=== PATIENT | female | born 1955 | race African-American/Black ===

== ENCOUNTER → 2016-11-29 | Outpatient (CLI) | payer OTHER ==
[2016-11-29 10:53] LABS: CREATININE 0.8 mg/dL (0.6-1.0)
== END ==
LOC: LABMALL 10:12
PROVIDERS: Family Medicine
DX: R10.13 Epigastric pain (principal)

== ENCOUNTER 2017-09-15 05:24 | Inpatient (IN) | payer OTHER ==
[2017-08-31 08:49] LABS: HEMATOCRIT 38.3 % (37.0-47.0); HEMOGLOBIN 12.7 gm/dL (12.0-15.0); MCH 27.8 pg (26.0-34.0); MCHC 33.3 g/dL (28.0-37.0); MCV 83.6 fL (80.0-100.0); RBC 4.58 mil/uL (4.20-5.00); RDW 13.9 % (10.5-14.5); WBC 6.4 thou/uL (4.0-11.0)
[2017-08-31 08:57] LABS: URINE BILIRUBIN NEGATIVE (Negative); URINE BLOOD NEGATIVE (Negative); URINE CLARITY CLEAR; URINE COLOR YELLOW; URINE GLUCOSE-RANDOM* NEGATIVE (Negative); URINE KETONES NEGATIVE (Negative); URINE LEUKOCYTES-REFLEX NEGATIVE (Negative); URINE NITRITE-REFLEX NEGATIVE (Negative); URINE PROTEIN (DIPSTICK) NEGATIVE (Negative); URINE UROBILINOGEN 0.2 E.U./dl (0.2-1.0)
[2017-08-31 08:58] LABS: CALCIUM 9.6 mg/dL (8.5-10.1); CREATININE 0.8 mg/dL (0.6-1.0); POTASSIUM 3.6 mmol/L (3.5-5.1)
[2017-08-31 09:03] LABS: PROTIME 10.7 Seconds (9.3-11.4)
[2017-09-15] VITALS (9 sets, daily range): BP systolic 116–157; BP diastolic 80–98
[~2017-09-15] VITALS: Ht 170.2 cm; Wt 99.8 kg
--- NOTE | ~2017-09-15 | O ---
[facility] [place] [address] OPERATIVE REPORT Name: VIDAL JENSEN Room #: 409-P [facility] IN M.R.#: [id number] Admission: 09/15/17 Attend Phys: Rigo Muller MD Discharge: Date of : 53 Report #: [id number] THIS REPORT FOR: //name// CC: Juan Muller DATE OF SERVICE: 09/15/2017 PREOPERATIVE DIAGNOSIS: Left knee osteoarthritis. POSTOPERATIVE DIAGNOSIS: Left knee osteoarthritis. PROCEDURE: Left total knee arthroplasty with Navio robotic assistance. SURGEON: Rigo Muller M.D. NETWORK DEVELOPMENT COORDINATOR: Vanessa Ch PA-C. INDICATION FOR THE ASSISTNT: Throughout the case, extensive retraction and manipulation of the knee was required. This was afforded to me by my physical therapy assistant instructor. ANESTHESIA: LMA with an adductor canal block. IMPLANTS: Holland [employer] Nephew size 7 Legion Oxinium posterior stabilized femur, size 5 tibia, size 9 polyethylene and size 32 patella. TOURNIQUET TIME: 82 minutes. ESTIMATED BLOOD LOSS: 50 mL. COMPLICATIONS: None. SPECIMENS: None. CONDITION UPON LEAVING THE OPERATING ROOM: Stable. INDICATIONS FOR PROCEDURE: The patient is a 61-year-old female with severe left knee osteoarthritis. She had failed conservative treatment for this and after discussion with her, she elected for left total knee arthroplasty. DESCRIPTION OF PROCEDURE: Risks, benefits, alternatives and complications were discussed in detail with the patient, including but not limited to risk of anesthesia; risk of damage to nerves, arteries or blood vessels; risk for infection or bleeding; risk for continued knee pain and need for reoperation. Informed consent was obtained from the patient. Left knee was appropriately marked in the preoperative holding area. IV Ancef was given for preoperative [address] [address] OPERATIVE REPORT Name: VIDAL JENSEN [facility] Room #: 409-P [facility] IN M.R.#: [id number] Admission: 09/15/17 Attend Phys: Rigo Muller MD Discharge: Date of : 53 Report #: [id number] antibiotics. She was brought to the operating room and placed in the supine position on the operating room table. LMA anesthesia was induced without complication. Tourniquet was placed on the left thigh. Left lower extremity was prepped and draped in normal sterile fashion. Timeout was performed, properly identifying the patient, procedure as well as the instrumentation. All in the operating room were in agreement. Left lower extremity was exsanguinated and tourniquet was inflated. Tourniquet time was 82 minutes. Standard midline approach to the knee was made with 10 blade through the skin. Dissection was taken down sharply to the fascia and deep flaps were developed medially and laterally. Fresh 10 blade was used to make a medial parapatellar arthrotomy and the knee was inspected. There was extensive tricompartmental osteoarthritic change. ACL and PCL were removed sharply. Anterior horns of meniscus were removed sharply. Osteophytes were removed from the femur and the tibia. Reference pins in the femur and tibia were then placed and the Navio system was set up. The femur and tibia were then digitally mapped and flexion and extension gaps and balance were calculated. The femur was sized to be a size 7. The high-speed bur was then used to make the distal femoral cut using the Navio system. The 4-in-1 size 7 cutting block was placed. Anterior, posterior and chamfer cuts were made. Attention was turned to the tibia. Tibial resection guide was then pinned in place using the drill holes previously placed using the Navio system. The tibial resection was then made. After this tibia sized, found to be a size 5, the size 5 tibial trial was placed, size 7 femoral trial was placed and the box cut was made. This was then trialed with a size 9 polyethylene and found to have good balance in flexion and extension both medially and laterally. This was manually checked as well as digitally checked using the Navio system. A 9 mm was taken off the posterior surface of the patella and a size 32 patellar trial was placed. Knee was taken through range of motion and found to be stable and found to have good balance in flexion and extension both medially and laterally. Trial components were removed. Bony ends were thoroughly irrigated with normal saline. A final size 5 tibia, size 7 Legion Oxinium posterior stabilized femur and a size 32 patella were cemented in place using standard cementation techniques. While the cement cured, a periarticular injection consisting of morphine, ropivacaine, epinephrine and Toradol was placed around the knee joint. After the cement cured, tourniquet was deflated. Hemostasis was obtained with Bovie cautery. Final size 9 polyethylene was placed. A gram of vancomycin was placed deep in the joint. The fascia was closed with 0 Vicryl, skin was closed with 2-0 Vicryl and 3-0 Monocryl. Dermabond and a KARYN dressing was applied. The patient tolerated this procedure well and went to the recovery room under the care of anesthesia postoperatively. <ELECTRONICALLY SIGNED> By: Rigo Muller MD 09/16/17 1306 [id number] 1035 Rigo Muller MD /nt
[~2017-09-15 05:24] MED LIST: EXCEDRIN CAPLE1 EACH PO
[2017-09-16 00:25] VITALS: BP 110/55
[2017-09-16 05:16] VITALS: BP 112/62
[2017-09-16 06:00] LABS: HEMATOCRIT 29.1 % (37.0-47.0); HEMOGLOBIN 9.5 gm/dL (12.0-15.0); MCH 27.6 pg (26.0-34.0); MCHC 32.8 g/dL (28.0-37.0); MCV 84.3 fL (80.0-100.0); RBC 3.45 mil/uL (4.20-5.00); RDW 13.7 % (10.5-14.5); WBC 10.6 thou/uL (4.0-11.0)
[2017-09-16 08:00] VITALS: BP 125/79
[2017-09-16] MEDS ORDERED: TRI-BUFFERED A325 M1 PO (14:57)
[2017-09-16] MEDS ORDERED: MS CONTIN15 MG PO (14:57)
[2017-09-16] MEDS ORDERED: PERCOCET PO (14:58)
[2017-09-16] MEDS ORDERED: NEURONTIN 300300 M1 PO (14:58)
[2017-09-16 17:09] VITALS: BP 125/61
[2017-09-16 20:00] VITALS: BP 121/71
[2017-09-17 04:00] VITALS: BP 102/53
[2017-09-17 05:49] LABS: HEMATOCRIT 24.4 % (37.0-47.0); HEMOGLOBIN 8.1 gm/dL (12.0-15.0); MCH 28.1 pg (26.0-34.0); MCHC 33.3 g/dL (28.0-37.0); MCV 84.4 fL (80.0-100.0); RBC 2.9 mil/uL (4.20-5.00); RDW 13.3 % (10.5-14.5); WBC 7.1 thou/uL (4.0-11.0)
[2017-09-17 07:45] VITALS: BP 122/76
[2017-09-17 10:16] VITALS: BP 122/76
== END 2017-09-17 12:35 | disposition home or self-care (01) | DRG 470 ==
LOC: PRE 05:24 → TBA 05:27 → PRE 08:24 → 4N 11:00 → PRE 16:43 → 4N 09-17 12:35
PROVIDERS: Orthopaedic Surgery
PROC: 0SRD0J9 Replacement of Left Knee Joint with Synthetic Substitute, Cemented, Open Approach (ICD-10-PCS; principal; 2017-09-15)
DX: M17.12 Unilateral primary osteoarthritis, left knee (principal); Z91.040 Latex allergy status; Z79.82 Long term (current) use of aspirin; Z79.899 Other long term (current) drug therapy
CPT/HCPCS: 10790; 50010; 50101; 50954; 51130; 51225; 51771; 53000; 53078; 53365; 54118; 56527; 56528; 57095; 62110; 62900; 70005

== ENCOUNTER → 2018-10-17 | Outpatient (CLI) | payer OTHER ==
[~2018-10-17] MED LIST changes: +MS CONTIN15 MG PO; +NEURONTIN 300300 M1 PO; +PERCOCET PO; +SUPER B COMPLE150 MG PO; +TRI-BUFFERED A325 M1 PO; +TYLENOL EXTRA500 MG PO
== END ==
LOC: RAD 08:53
DX: R05 Cough (principal)

== ENCOUNTER 2019-06-25 08:15 | Inpatient (IN) | payer OTHER ==
[~2019-06-25] VITALS: Ht 170.2 cm; Wt 112.5 kg
[2019-06-25 08:18] VITALS: BP 151/97
[2019-06-25 08:51] LABS: ABSOLUTE NEUTROPHILS 5.7 thou/uL (1.4-8.2); BASOPHILS 0.6 % (0.0-2.0); EOSINOPHILS 0.5 % (0.0-3.0); HEMATOCRIT 31.9 % (37.0-47.0); HEMOGLOBIN 10.3 gm/dL (12.0-15.0); LYMPHOCYTES 32.2 % (24.0-44.0); MCH 26.8 pg (26.0-34.0); MCHC 32.1 g/dL (28.0-37.0); MCV 83.4 fL (80.0-100.0); MONOCYTES 5.3 % (1.0-8.0); PLATELET COUNT 271 thou/uL (150-400); POLYS 61.4 % (36.0-66.0); RBC 3.83 mil/uL (4.20-5.00); RDW 14.5 % (10.5-14.5); WBC 9.3 thou/uL (4.0-11.0)
[2019-06-25 09:01] LABS: CALCIUM 8.9 mg/dL (8.5-10.1); CREATININE 0.8 mg/dL (0.6-1.0); POTASSIUM 3.6 mmol/L (3.5-5.1)
[2019-06-25 09:07] LABS: ALBUMIN 3.8 g/dL (3.4-5.0); TOTAL BILIRUBIN 0.3 mg/dL (<0.1-1.0); TOTAL PROTEIN 7.4 g/dL (6.4-8.2)
[2019-06-25 11:42] VITALS: BP 149/84
[2019-06-25 15:51] LABS: HEMATOCRIT 27.5 % (37.0-47.0); HEMOGLOBIN 9.1 gm/dL (12.0-15.0); MCH 27.6 pg (26.0-34.0); MCHC 33.2 g/dL (28.0-37.0); MCV 83.1 fL (80.0-100.0); RBC 3.31 mil/uL (4.20-5.00); RDW 14.5 % (10.5-14.5); WBC 9.1 thou/uL (4.0-11.0)
--- NOTE | 2019-06-25 18:46 | NUR ---
PT ADMITTED POST SCOPE IN GI LAB. FOUND TO HAVE BLEEDING GASTRIC ULCER. STARTED ON IV FLUIDS AND PROTONIX GTT. PRN FENTANYL GIVEN FOR PAIN. ADMISSION ASSESSMENTS COMPLETE. MED REC UP TO DATE.
[2019-06-25 19:17] VITALS: BP 127/66
--- NOTE | 2019-06-26 04:51 | NUR ---
Pt. rested quietly at intervals during the night when checked on during frequent rounds. She did c/o abdominal pain and ivp pain med given (see emar) with relief noted. Pt. also c/o nausea and ivp zofran given (see emar) with relief. No noted bleeding this shift.
[2019-06-26 07:31] LABS: BASOPHILS 0.6 % (0.0-2.0); EOSINOPHILS 3.6 % (0.0-3.0); HEMOGLOBIN 7.9 gm/dL (12.0-15.0); LYMPHOCYTES 35.8 % (24.0-44.0); MCH 27.4 pg (26.0-34.0); MCHC 32.8 g/dL (28.0-37.0); MCV 83.5 fL (80.0-100.0); MONOCYTES 6.6 % (1.0-8.0); PLATELET COUNT 195 thou/uL (150-400); POLYS 53.4 % (36.0-66.0); RBC 2.88 mil/uL (4.20-5.00); RDW 14.4 % (10.5-14.5); WBC 7.5 thou/uL (4.0-11.0)
[2019-06-26 08:01] VITALS: BP 129/76
--- NOTE | 2019-06-26 08:18 | EKG ---
[facility] [place] [address] ELECTROCARDIOGRAM REPORT Name: VIDAL JENSENJose Alfredo Room #: 460-P ADM IN M.R.#: [id number] Admission: 06/25/19 Attend Phys: Kike Rae MD Discharge: Date of : 53 Report #: [id number] THIS REPORT FOR: cc: Skye Diop MD, Nora P. MD Couchonnal, Luis F. MD ~ THIS REPORT FOR: //name// [facility] ED Test Date: 2019-06-25 Test Time: 08:37:34 Pat Name: VIDAL JENSEN Department: Room: 460 P Gender: F Teacher'S Aide: KF : 1955 Requested By: Chuy Mercer Order Number: [id number] MD: Abad Khan Measurements Intervals [place] Rate: 102 P: 72 DC: 170 QRS: 45 QRSD: 76 T: 1 QT: 309 QTc: 403 Interpretive Statements Sinus tachycardia Probable left atrial enlargement Probable left ventricular hypertrophy Compared to ECG 12/12/2017 08:30:14 Sinus rhythm no longer present Electronically Signed On 06-26-2019 8:17:50 DIRECTOR POWER by Abad Khan [email or web address] <ELECTRONICALLY SIGNED> By: Abad Khan MD 06/26/19816 6 6 Abad Khan MD /EPI
[2019-06-26 16:42] VITALS: BP 131/67
--- NOTE | 2019-06-26 16:46 | P ---
[facility] [place] [address] PROCEDURE REPORT Name: VIDAL JENSEN Room #: 460-P ADM IN M.R.#: [id number] Admission: 06/25/19 Attend Phys: Kike Rae MD Discharge: Date of : 53 Report #: [id number] THIS REPORT FOR: cc: Skye Diop MD, Nora P. MD Thesing, John A. MD ~ CC: Humza Diop BRIEF HISTORY: The patient is a 63-year-old woman who was admitted to [facility] earlier today with hematemesis. She was anemic and tachycardic with a pulse rate of 135 upon presentation. Symptoms started last evening with severe chest pain, syncopal episode, hematemesis of blood clots and dark blackish stools. Her BUN is 50 today. History is notable for daily use of aspirin, typically 6 per day. At times, she may take as many as 12 per day. PREOPERATIVE DIAGNOSES: Upper gastrointestinal bleeding and history of heavy aspirin ingestion. POSTOPERATIVE DIAGNOSES: 1. Multiple antral ulcers, nonbleeding. 2. Small hiatus hernia. MEDICATIONS: Deep sedation with propofol per anesthesia. SPECIMEN: Biopsies of gastritis, rule out Helicobacter pylori. ESTIMATED BLOOD LOSS: 3 mL. PROCEDURE: EGD with biopsy. FINDINGS: Prior to propofol sedation, procedure of upper endoscopy was discussed with the patient as well as potential risks and its complications. She indicates she understands and desires to proceed. DESCRIPTION OF PROCEDURE: With the patient in left lateral decubitus position, the Olympus video endoscope was inserted in the cervical esophagus under direct vision without difficulty. Examination of this organ through its entire length revealed normal esophageal mucosa down the squamocolumnar junction. Squamocolumnar junction was inspected. A small hiatus hernia was seen. There is no evidence of bleeding or mass lesions. The scope was advanced in the stomach, was examined on end view as well as retroflexed views. There was a pool of clear frothy secretions in the stomach and bilious secretions were not seen. Upon retroflexion, no mass lesions were seen. Examination of the distal stomach revealed a markedly deformed antrum. There were noted to be some thickening with erythema and edema of the folds. A carefully looking between [address] [address] PROCEDURE REPORT Name: VIDAL JENSEN [facility] Room #: 460-P [facility] IN [facility].#: [id number] Admission: 06/25/19 Attend Phys: Kike Rae MD Discharge: Date of : 53 Report #: [id number] the folds so we found at least 3 ulcers. The largest was about 1.5-2.0 cm in greatest dimension. There was a very deep ulcer on the greater curvature aspect of the stomach. There was some blackish material which was flat. An obvious vessel was not seen. However, the ulcer was very deep and I could not see all of the ulcer crater. The other ulcers were smaller with clean bases. I could not see and definitely exposed the vessel. Due to the difficulty in visualizing the entire ulcer base, it was felt best not to apply thermal therapy to the base of the ulcer blindly. The pylorus was erythematous, but otherwise unremarkable. Duodenal bulb and postbulbar duodenal sweep down to third portion was unremarkable. There was no blood in the duodenum. At that point, the scope was slowly withdrawn and careful circumferential views confirmed the above findings. In addition, biopsies were obtained of the gastric mucosa to evaluate for H. pylori. DISPOSITION: The patient with multiple ulcers and evidence of GI bleeding. Agree with PPI and will continue at this point in time. We will continue PPI drip. We will follow up on biopsies. If she has H. pylori, antibiotic treatment may be beneficial to the patient. She will need a followup EGD to ensure healing of the ulcer. It is also noted she has never had a colonoscopy and I would strongly urge to have a screening colonoscopy when she returns for EGD. In addition, the patient should avoid use of aspirin or nonsteroidals. She is to speak with her primary regarding alternatives to aspirin for migraine headaches. <ELECTRONICALLY SIGNED> By: Humza Barbosa MD 06/26/19 1646 [id number] 2232 Humza Barbosa MD /nt
[2019-06-26 20:33] VITALS: BP 125/65
--- NOTE | 2019-06-26 20:33 | NUR ---
PATIENT ALERT AND ORIENTED WITH AT BEDSIDE MOST OF THE DAY. PATIENT REQUESTED PAIN IV PAIN MED X 1 TODAY AND TO TOLERATED CLEAR LIQUID DIET AND REQUESTED TO BE AVANCED TO FIBER RESTRICTED SOFT DIET THIS EVENING. PATIENT OBSERVED EATING FRIED CHICKEN BROUGHT IN FROM . THIS NURSE AVDISED PATIENT TO MINIMIZE PORTIONS TO NOT CAUSE NAUSEA. PATIENT DIDN'T HAVE ANY FURTHER NAUSEA ON THIS DAY SHIFT.
[2019-06-27 05:35] LABS: HEMATOCRIT 23.3 % (37.0-47.0); HEMOGLOBIN 7.6 gm/dL (12.0-15.0); MCH 27.7 pg (26.0-34.0); MCHC 32.7 g/dL (28.0-37.0); MCV 84.7 fL (80.0-100.0); RBC 2.75 mil/uL (4.20-5.00); RDW 14.6 % (10.5-14.5); WBC 7.2 thou/uL (4.0-11.0)
[2019-06-27 06:01] LABS: CALCIUM 8.4 mg/dL (8.5-10.1); CREATININE 0.6 mg/dL (0.6-1.0); POTASSIUM 3.6 mmol/L (3.5-5.1)
[2019-06-27 07:09] VITALS: BP 127/66
--- NOTE | 2019-06-27 07:48 | NUR ---
PROGRESS PT A/O X 4 UP AD MARIELOS. RATING PAIN A 5 TO 9 TAKING 50 MCG FENTANYL SPARINGLY, VOIDING QS AND HAD A SMALL FORMED BM. TOLERATING DIET ADEQUATE PO INTAKE. CONTINUE POC.
[2019-06-27 14:30] LABS: HEMATOCRIT 25.9 % (37.0-47.0); HEMOGLOBIN 8.5 gm/dL (12.0-15.0); MCH 27.7 pg (26.0-34.0); MCHC 32.9 g/dL (28.0-37.0); RBC 3.08 mil/uL (4.20-5.00); RDW 14.3 % (10.5-14.5); WBC 8.4 thou/uL (4.0-11.0)
[2019-06-27 16:00] VITALS: BP 128/64
--- NOTE | 2019-06-27 16:26 | NUR ---
PT ADMITTED RELATED TO LAP CHOLECYSTECTOMY. CM REVIEWED CHART AND SPOKE WITH CARE TEAM. CM MET WITH PT AND WENDY AT BEDSIDE THIS DAY. PT IS A&O X4. CM ROLE INTRODUCED. PT INDICATED SHE LIVES IN A HOUSE WITH HER SIG OTHER WITH NO STEPS OUTSIDE OR IN. 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 PT INDICATED SHE PLANS TO RETURN HOME ONCE MEDICALLY STABLE. CARE TEAM ARE ANTICIPATING LIKELY DC TOMORROW. CM TO FOLLOW INDICATED WITH DC PLANNING.
--- NOTE | 2019-06-27 16:58 | NUR ---
PT ALERT AND ORIENTED TIMES FOUR. VSS, PROTONIX GTT AND IVF INFUSING PER ORDER. PT C/O ABD PAIN AND NAUSEA. PRN MEDICATIONS FOR BOTH GIVEN WITH GOOD RELEIF. PT TOLERATES MEDS AND MEALS. PT UP AB MARIELOS WITH STEADY GAIT. PT AT BEDSIDE. PLANS FOR POSSIBLE DISCHARGE TOMORROW. PT PROGRESSING TOWARDS POC GOALS.
--- NOTE | 2019-06-27 17:07 | PATH ---
[facility] [address] [place] [address] PATHOLOGY RPT PROCEDURE Name: CHRISTINA ROLLINS Room #: 460-P ADM IN M.R.#: [id number] Admission: 06/25/19 Date of : 53 Discharge: Report #: [id number] Path Case #: [id number] [facility] Accession Number: [id number] . 01 Material submitted: . stomach - BX OF GASTRITIS . 01 Clinical history: . GI bleed; R/O H. pylori . 02 Diagnosis: Gastric mucosa, gastritis, rule out H. pylori, endoscopic biopsy: - Mild reactive gastropathy. - Negative for intestinal metaplasia or atrophy. - Negative for Helicobacter pylori (properly-controlled immunohistochemical stain performed). . (IUV:mml; 06/27/2019) QLM 06/27/2019 1037 Local . 02 Electronically signed: . Kristina Sol MD, Pathologist NPI- [id number] . 01 Gross description: . The specimen is received in formalin, labeled "Christina Rollins, biopsy of gastritis". Received are three segments of pale chandler soft tissue ranging in size from 0.4 to 0.6 cm in maximum dimensions. The specimen is submitted entirely in cassette A1. (CAA; 06/26/2019) QA/QA 06/26/2019 1104 Local . 02 Pathologist provided ICD-10: K31.9 . 02 CPT . 933989, [id number] Specimen Comment: A courtesy copy of this report has been sent to [phone], [phone] Specimen Comment: [phone], Specimen Comment: Report sent to , and Performed at: [address] [id number] MD Gabino López MD Phone: [phone] Performed at: [address] [address] PATHOLOGY RPT PROCEDURE Name: CHRISTINA ROLLINSJose Alfredo Room #: 460-P ADM IN M.R.#: [id number] Admission: 06/25/19 Date of : 53 Discharge: Report #: [id number] Path Case #: [id number] [address] [place] [id number] MD Kristina Sol MD Phone: [phone]
[2019-06-27 19:09] VITALS: BP 126/62
[2019-06-28 07:19] VITALS: BP 119/61
--- NOTE | 2019-06-28 07:39 | NUR ---
PROGRESS PT UP AD MARIELOS LUNGS CLEAR BS POSITIVE VOIDING QS HAD A SMALL STOOL NOT VISUALIZED. TAKING FENTANYL FOR PAIN HYDROCODONE ORDERED AND GIVEN X 1 PT REPORTED A HEADACHE AFTER. INSPECTOR FINAL ASSEMBLY CONVEYOR LINE TEXTED TO REQUEST A CHANGE TO OXYCODONE NO RESPONSE REQUESTED DAY SHIFT TO SPEAK TO DOCTOR. IV PROTONIX DRIP CONTIUES AT 8 MG/HR AND IVF'S RUNNING AT KVO. CONTINUE TO MONITOR.
[2019-06-28 09:27] LABS: HEMATOCRIT 27.9 % (37.0-47.0); HEMOGLOBIN 9.1 gm/dL (12.0-15.0); MCH 27.4 pg (26.0-34.0); MCHC 32.5 g/dL (28.0-37.0); MCV 84.4 fL (80.0-100.0); RBC 3.3 mil/uL (4.20-5.00); RDW 14.3 % (10.5-14.5); WBC 7.1 thou/uL (4.0-11.0)
[2019-06-28 09:48] LABS: CALCIUM 8.5 mg/dL (8.5-10.1); CREATININE 0.7 mg/dL (0.6-1.0); POTASSIUM 3.5 mmol/L (3.5-5.1)
--- NOTE | 2019-06-28 13:29 | NUR ---
Received awake on bed. Due medications given as prescribed, able to swallow meds w/o difficulty. On room air. Vital signs stable. A+Ox4. On fiber restricted diet- encouraged to eat and drink- pt says she does not have the appetite to eat, offered snacks to patient. Continent of bowel and bladder. Independent with ADLs. With Protonix drip at 8mg/hr, infusing well at R FA. Pt complained of pain, requesting to have her Leakey changed to Oxycodone since Leakey is causing to have headache- Dr Rae informed, change on pt's medication made. Pt seen by DARELL Burkett, CBC ordered for tomorrow; discontinued Protonix drip and shifted to PO. Pt for possible discharge, a/w orders and clearance from GI standpoint as well.
[2019-06-28 15:15] VITALS: BP 122/74
[2019-06-28 15:25] LABS: HEMATOCRIT 26.7 % (37.0-47.0); HEMOGLOBIN 8.7 gm/dL (12.0-15.0); MCH 27.6 pg (26.0-34.0); MCHC 32.7 g/dL (28.0-37.0); MCV 84.5 fL (80.0-100.0); RBC 3.16 mil/uL (4.20-5.00); RDW 14.4 % (10.5-14.5); WBC 7.9 thou/uL (4.0-11.0)
--- NOTE | 2019-06-28 16:16 | NUR ---
CARE TEAM INDICATED POSSIBLE DC HOME TOMORROW. CM TO FOLLOW INDICATED WITH DC PLANNING.
[2019-06-28 20:15] VITALS: BP 120/63
[2019-06-29 06:41] LABS: HEMATOCRIT 25.7 % (37.0-47.0); HEMOGLOBIN 8.4 gm/dL (12.0-15.0); MCH 27.4 pg (26.0-34.0); MCHC 32.7 g/dL (28.0-37.0); RBC 3.06 mil/uL (4.20-5.00); RDW 14.4 % (10.5-14.5); WBC 7.7 thou/uL (4.0-11.0)
[2019-06-29 08:42] VITALS: BP 137/72
[2019-06-29] MEDS ORDERED: PERCOCET PO (10:32)
[2019-06-29] MEDS ORDERED: PROTONIX40 M1 PO (10:32)
[2019-06-29] MEDS ORDERED: CARAFATE 11 GM/10 M1 PO (10:32)
[2019-06-29] MEDS ORDERED: ZOFRAN 4 MG ORAL4 MG PO (10:33)
[2019-06-29 10:57] VITALS: BP 137/72
--- NOTE | 2019-06-29 12:45 | NUR ---
Received awake on bed. Due medications given as prescribed, able to swallow meds w/o difficulty. On room air. Vital signs stable. On fiber restricted diet- tolerating well, encouraged to eat; no nausea, no vomiting and no abdominal pain. With at the bedside. With SL at R FA. A+Ox4. Continent of bowel and bladder, independent with ADLs. Pt seen by Dr Rae this AM, discharge orders made. Discharge instructions, follow up schedule and prescription given and instructed to patient; forms signed. IV discontinued. Pt fetched by her , brought down patient via wheelchair by volunteer transport with her personal belongings.
== END 2019-06-29 12:50 | disposition home or self-care (01) | DRG 379 ==
LOC: ER 08:15 → 4W 11:03 → EROBS 11:03 → 4W 11:47 → ENTRNSPT 06-29 12:00 → EDTRNSPTSTS 06-29 12:04 → 4W 06-29 12:50
PROVIDERS: Emergency Medicine; Nurse Practitioner; Specialist; ADMIT Hospitalist
PROC: 0DB68ZX Excision of Stomach, Via Natural or Artificial Opening Endoscopic, Diagnostic (ICD-10-PCS; principal; 2019-06-25)
DX: K25.4 Chronic or unspecified gastric ulcer with hemorrhage (principal); K29.71 Gastritis, unspecified, with bleeding; G43.909 Migraine, unspecified, not intractable, without status migrainosus; K21.9 Gastro-esophageal reflux disease without esophagitis; K44.9 Diaphragmatic hernia without obstruction or gangrene; E86.0 Dehydration; J45.909 Unspecified asthma, uncomplicated; Z90.710 Acquired absence of both cervix and uterus; Z87.81 Personal history of (healed) traumatic fracture; Z90.49 Acquired absence of other specified parts of digestive tract; Z91.040 Latex allergy status; Z79.1 Long term (current) use of non-steroidal anti-inflammatories (NSAID); Z79.899 Other long term (current) drug therapy
CPT/HCPCS: 10040; 10045; 62110; 62900; 70005

== ENCOUNTER → 2019-08-01 | Outpatient (CLI) | payer OTHER ==
[~2019-08-01] MED LIST changes: +CARAFATE 11 GM/10 M1 PO; +PROTONIX40 M1 PO; +ZOFRAN 4 MG ORAL4 MG PO
== END ==
LOC: SJCVCIMAG 08:06 → SJCVC 16:01
DX: I35.8 Other nonrheumatic aortic valve disorders (principal); R01.1 Cardiac murmur, unspecified; R06.00 Dyspnea, unspecified

== ENCOUNTER → 2019-08-10 | Outpatient (CLI) | payer OTHER ==
[2019-08-10 09:20] VITALS: BP 137/80
[2019-08-10 11:11] VITALS: BP 174/88
--- NOTE | 2019-08-10 11:17 | NUR ---
IN FOR 1ST INJECTAFER INFUSION FOR IRON DEFICIENCY ANEMIA. STATED FEELING OK, JUST TIRED. CARON WITH VASCULAR ACCESS TEAM STARTED IV. ADMISSION HISTORY AND ASSESSMENT COMPLETED. MEDICATION RECONCILED. TOLERATED INFUSION WITHOUT INCIDENT. OBSERVED FOR 30 MINUTES. POST BLOOD PRESSURE HIGH. PATIENT STATED FEELING FINE. REMOVED IV AND DISMISSED IN STABLE CONDITION.
== END ==
LOC: OPONC 08:56
DX: D50.9 Iron deficiency anemia, unspecified (principal); K90.49 Malabsorption due to intolerance, not elsewhere classified
CPT/HCPCS: 95000

== ENCOUNTER → 2019-08-17 | Outpatient (CLI) | payer OTHER ==
[2019-08-17 10:00] VITALS: BP 143/81
[2019-08-17 12:30] VITALS: BP 124/68
--- NOTE | 2019-08-17 13:26 | NUR ---
IN FOR 2ND INJECTAFER INFUSION. STATED SHE IS NOT FEELING SHORT OF BREATH WITH ACTIVITY AND HAD NO SIDE EFFECTS. TOLERATED INFUSION WELL. OBSERVED FOR 30 MINUTES. POST VITAL SIGNS GOOD. REMOVED IV AND DISMISSED IN GOOD CONDITION.
== END ==
LOC: OPONC 08:48
DX: D50.9 Iron deficiency anemia, unspecified (principal); K90.49 Malabsorption due to intolerance, not elsewhere classified
CPT/HCPCS: 95000

== ENCOUNTER → 2019-09-24 | Outpatient (CLI) | payer OTHER ==
[~2019-09-24] MED LIST changes: +PROTONIX40 M2 PO
== END ==
LOC: RAD 09:54
DX: R05 Cough (principal)

== ENCOUNTER → 2019-09-28 | Outpatient (CLI) | payer OTHER ==
[~2019-09-28] VITALS: Ht 170.2 cm; Wt 109.8 kg
--- NOTE | 2019-09-29 12:27 | P ---
[facility] [place] [address] PROCEDURE REPORT Name: VIDAL JENSEN Room #: REG NATALIE MarieJennifer#: [id number] Admission: 09/28/19 Attend Phys: Humza Barbosa MD Discharge: Date of : 53 Report #: [id number] THIS REPORT FOR: cc: Skye Diop MD, Nora P. MD Thesing, John A. MD ~ CC: Humza Diop MD BRIEF HISTORY: The patient is a 63-year-old woman who was admitted to [facility] in June this year with GI bleeding. She was found to have evidence of antral gastric ulcers. She had been using a large amount of aspirin for headaches at that time. She has been on pantoprazole. She presents now for followup to check for healing ulcers. PREOPERATIVE DIAGNOSIS: Gastrointestinal bleeding and ulcers. POSTOPERATIVE DIAGNOSES: 1. Healed gastric ulcers. 2. Small sliding type hiatus hernia. 3. Thickened folds second portion of the duodenum. MEDICATIONS: Deep sedation per propofol. SPECIMEN: Biopsies of thickened folds in the second portion of the duodenum. ESTIMATED BLOOD LOSS: 3 mL. PROCEDURE: EGD with biopsy. FINDINGS: Prior to propofol sedation, the procedure of upper endoscopy was discussed with the patient as well as potential risks and its complications. She indicates she understands and desires to proceed. DESCRIPTION OF PROCEDURE: With the patient in left lateral decubitus position, the Olympus video endoscope was inserted in the cervical esophagus under direct vision without difficulty. Examination of this organ through its entire length revealed normal esophageal mucosa down the squamocolumnar junction. Squamocolumnar junction was inspected and noted to be unremarkable. The scope was advanced and a 2-3 cm sliding type hiatus hernia was encountered. The mucosa and the hernia was unremarkable. Scope was advanced in the stomach, which was examined on end view as well as retroflexed views. There was noted to be erythema in the antrum, but the mucosa was intact. The previously noted ulcers have healed 100%. There is some erythema, but no evidence of active ulcer disease or bleeding. Upon retroflexion, the hiatus hernia was seen. No other abnormalities were identified. No mass lesions were seen in the cardia. [address] [address] PROCEDURE REPORT Name: VIDAL JENSEN [facility] Room #: REG [facility] Se#: [id number] Admission: 09/28/19 Attend Phys: Humza Barbosa MD Discharge: Date of : 53 Report #: [id number] The pylorus, duodenal bulb and postbulbar duodenal sweep were inspected. In the second portion of the duodenum, there was some whitish thickened folds. This may represent adenomatous changes. This may be in the region of the duodenal papilla, which was not well seen today. It had a smooth and benign appearance, but these folds were much more prominent than typically seen; therefore, multiple biopsies were obtained. At that point, the scope was slowly withdrawn and careful circumferential views confirmed the above findings. The patient tolerated the procedure well. CONDITION OF THE PATIENT UPON DISCHARGE: Following procedure, the patient was drowsy and was then prepared for colonoscopy. INSTRUCTIONS TO THE PATIENT AND FAMILY AT THE TIME OF DISCHARGE: She is currently taking pantoprazole. She may use as needed. She is now using Tylenol for headaches. If nonsteroidals are required, she should coordinate with a PPI. The thickened folds in the second portion of the duodenum may be related to anal papilla, but they are much more extensive and prominent than typically seen. We will follow up on biopsies. May need further evaluation such as endoscopic ultrasound and repeat EGD depending on biopsy results. <ELECTRONICALLY SIGNED> By: Humza Barbosa MD 09/29/19 1227 1109 1410 Humza Barbosa MD /nt
--- NOTE | 2019-09-29 12:27 | P ---
[facility] [place] [address] PROCEDURE REPORT Name: VIDAL JENSEN Room #: REG NATALIE [facility]#: [id number] Admission: 09/28/19 Attend Phys: Humza Barbosa MD Discharge: Date of : 53 Report #: [id number] THIS REPORT FOR: cc: Skye Diop MD, Nora P. MD Thesing, John A. MD ~ CC: Humza Diop DATE OF SERVICE: 09/28/2019 BRIEF HISTORY: The patient is a 63-year-old woman for her initial average risk screening colonoscopy. PREOPERATIVE DIAGNOSIS: Screening colonoscopy. POSTOPERATIVE DIAGNOSIS: Diminutive colon polyps x 2. MEDICATIONS: Deep sedation with propofol per anesthesia. SPECIMENS: 1. Proximal transverse colon polyp. 2. Polyp distal ascending colon. ESTIMATED BLOOD LOSS: 3 mL. PROCEDURE: Colonoscopy to cecum and terminal ileum with biopsy. FINDINGS: Prior to propofol sedation, procedure of colonoscopy discussed with the patient as well as potential risks and its complications. She indicates she understands and desires to proceed. DESCRIPTION OF PROCEDURE: With the patient in left lateral decubitus position, digital examination was completed, which revealed no abnormalities. Subsequently, the LineaQuattro video colonoscope was introduced into the rectum, advanced under direct vision to the cecum. Done with minimal difficulty. The cecum was identified by the ileocecal valve and the appendiceal orifice. I was able to visualize the distal segment of terminal ileum, which was inspected and noted to be unremarkable. At that point, the scope was slowly withdrawn and careful circumferential views obtained. Upon slow withdrawal of the scope, the prep was good. The mucosa was within normal limits, normal vascular pattern, normal light reflex. As we withdrew the scope, she was noted to have a diminutive polyp in the distal transverse colon was removed with biopsy forceps. In the proximal transverse colon, another diminutive polyp was seen and removed with biopsy forceps. The scope was further withdrawn, no additional neoplastic [address] [address] PROCEDURE REPORT Name: VIDAL JENSENMELVINAJose Alfredo Room #: REG [facility].#: [id number] Admission: 09/28/19 Attend Phys: Humza Barbosa MD Discharge: Date of : 53 Report #: [id number] lesions were seen. Remainder of the colon was unremarkable. The mucosa was otherwise normal throughout. No inflammatory changes were seen. Scope was withdrawn in the rectum, no abnormalities were seen. Upon retroflex in the rectum, no abnormalities were seen. Scope was withdrawn. The patient tolerated the procedure well. CONDITION OF THE PATIENT UPON DISCHARGE: Following procedure, the patient was drowsy, arousable, conversant and will be discharged home when fully ambulatory. INSTRUCTIONS TO THE PATIENT AND FAMILY AT THE TIME OF DISCHARGE: Two diminutive polyps identified and removed as described above. We will follow up on the pathology. If one or both are adenomas, she is to return in 5 years; if neither is adenoma, then 10 years would be indicated. This is the patient's first colonoscopy. Withdrawal time from the cecum was 11 minutes 47 seconds. <ELECTRONICALLY SIGNED> By: Humza Barbosa MD 09/29/19 1227 1135 1819 Humza Barbosa MD /nt
--- NOTE | 2019-10-02 18:07 | PATH ---
[facility] [address] [address] PATHOLOGY RPT PROCEDURE Name: CHRISTINA JENSEN Room #: REG NATALIE Marie.#: [id number] Admission: 09/28/19 Date of : 53 Discharge: Report #: [id number] Path Case #: [id number] [facility] Accession Number: [id number] . 01 Material submitted: . PART A: duodenum - BX OF THICKENED FOLDS SECOND PORTION OF DUODENUM PART B: colon - POLYP AT PROXIMAL TRANSVERSE. Modifiers: proximal, transverse PART C: colon - POLYP AT DISTAL ASCENDING COLON. Modifiers: distal, ascending . 01 Clinical history: . Ulcer Follow-up of ulcers; screening . 02 Diagnosis: A. Small bowel mucosa, thickened folds second portion of duodenum, endoscopic biopsy: - All fragments showing tubular adenoma. - Negative for high grade dysplasia. . B. Polyp, proximal transverse, endoscopic biopsy: - Hyperplastic polyp and lymphoid aggregate. - Negative for dysplasia. . C. Polyp, at distal ascending colon, endoscopic biopsy: - Minute tubular adenoma. - Negative for high grade dysplasia. - One fragment showing lymphoid aggregate. . (IUV:mml; 10/02/2019) QL 10/02/2019 1427 Local . 02 Electronically signed: . Kristina Sol MD, Pathologist NPI- [id number] . 01 Gross description: . A. The specimen is received in formalin, labeled "Christina Englishsarah, biopsy of thickened folds in second portion of duodenum". Received are five segments of pale chandler soft tissue ranging in size from 0.3 to 0.7 cm in maximum dimensions. The specimen is submitted entirely in cassette A1. . B. The specimen is received in formalin, labeled "Christina Englishsarah, polyp at proximal transverse". Received is a segment of pale chandler soft tissue measuring 0.5 cm in maximum dimensions. The specimen is submitted entirely in [place] [address] PATHOLOGY RPT PROCEDURE Name: CHRISTINA JENSEN Room #: REG [facility].#: [id number] Admission: 09/28/19 Date of : 53 Discharge: Report #: [id number] Path Case #: [id number] . C. The specimen is received in formalin, labeled "Christina Abelri, polyp at distal ascending colon". Received is a segment of pale chandler soft tissue measuring 0.5 cm in maximum dimensions. The specimen is submitted entirely in cassette C1. (CAA; 09/28/2019) QAC/QAC 09/28/2019 1641 Local . 02 Pathologist provided ICD-10: D13.2, K63.5, D12.2 . 02 CPT . 583696, 795503, 183682 Specimen Comment: A courtesy copy of this report has been sent to [phone] Specimen Comment: [phone] Specimen Comment: Report sent to / DR FALCON Performed at: [address] [facility], [place] [id number] MD Gabino López MD Phone: [phone] Performed at: [address] [id number] MD Kristina Sol MD Phone: [phone]
== END | disposition home or self-care (01) ==
LOC: GI 08:06
DX: Z12.11 Encounter for screening for malignant neoplasm of colon (principal); D12.2 Benign neoplasm of ascending colon; D13.2 Benign neoplasm of duodenum; K44.9 Diaphragmatic hernia without obstruction or gangrene; Z87.19 Personal history of other diseases of the digestive system; Z98.890 Other specified postprocedural states; Z90.49 Acquired absence of other specified parts of digestive tract; Z90.710 Acquired absence of both cervix and uterus; Z79.899 Other long term (current) drug therapy; Z91.040 Latex allergy status; Z88.8 Allergy status to other drugs, medicaments and biological substances; Z11.59 Encounter for screening for other viral diseases
CPT/HCPCS: 62110; 62900

== ENCOUNTER 2020-04-11 18:17 | Emergency (ER) | payer OTHER ==
[~2020-04-11] VITALS: Ht 170.2 cm; Wt 86.2 kg
[2020-04-11 19:07] LABS: ABSOLUTE NEUTROPHILS 3.9 thou/uL (1.4-8.2); BASOPHILS 0.6 % (0.0-2.0); EOSINOPHILS 3.8 % (0.0-3.0); HEMATOCRIT 35.7 % (37.0-47.0); HEMOGLOBIN 11.8 gm/dL (12.0-15.0); LYMPHOCYTES 32.9 % (24.0-44.0); MCH 27.9 pg (26.0-34.0); MCHC 33.1 g/dL (28.0-37.0); MCV 84.3 fL (80.0-100.0); MONOCYTES 9.1 % (1.0-8.0); PLATELET COUNT 253 thou/uL (150-400); POLYS 53.6 % (36.0-66.0); RBC 4.23 mil/uL (4.20-5.00); RDW 13.6 % (10.5-14.5); WBC 7.3 thou/uL (4.0-11.0)
[2020-04-11 19:12] LABS: ANION GAP 11 mmol/L (7-16); BUN 24 mg/dL (7-18); CALCIUM 9.2 mg/dL (8.5-10.1); CHLORIDE 102 mmol/L (98-107); CO2 26 mmol/L (21-32); CREATININE 1.1 mg/dL (0.6-1.0); GLUCOSE 94 mg/dL (74-106); POTASSIUM 3.7 mmol/L (3.5-5.1); SODIUM 139 mmol/L (136-145)
[2020-04-11 19:22] LABS: MAGNESIUM 2.1 mg/dL (1.8-2.4); TROPONIN-I <0.06 ng/mL (<0.06)
[2020-04-11 19:52] VITALS: BP 161/98
--- NOTE | 2020-04-12 10:43 | EKG ---
[facility] [place] [address] ELECTROCARDIOGRAM REPORT Name: VIDAL JENSEN Room #: [facility]#: [id number] Admission: 04/11/20 Attend Phys: Discharge: 04/11/20 Date of : 53 Report #: [id number] THIS REPORT FOR: cc: Skye Diop MD, Nora P. MD Lundgren,Sb Tobar MD [facility] ~ THIS REPORT FOR: //name// [facility] ED Test Date: 2020-04-11 Test Time: 18:55:21 Pat Name: VIDAL JENSEN Department: Room: Gender: F Civil Engineer Helper: : 1955 Requested By: Kameron Castelan Order Number: [id number] MD: Sb Giles Measurements Intervals [place] Rate: 70 P: 62 [place]: 182 QRS: 27 QRSD: 86 T: 12 QT: 412 QTc: 445 Interpretive Statements Sinus rhythm Compared to ECG 06/25/2019 08:37:34 Sinus tachycardia no longer present Electronically Signed On 04-12-2020 10:43:19 [employer]READ [employer] by Sb Giles [email or web address] <ELECTRONICALLY SIGNED> By: Sb Giles MD, FAC 04/12/20 1043 1855 1855 Sb Giles MD, [facility] /EPI
== END 2020-04-11 19:52 | disposition home or self-care (01) ==
LOC: ER 18:17
PROVIDERS: Emergency Medicine
DX: R06.00 Dyspnea, unspecified (principal); R11.10 Vomiting, unspecified; R05 Cough; K92.1 Melena; Z20.828 Contact with and (suspected) exposure to other viral communicable diseases; Z90.711 Acquired absence of uterus with remaining cervical stump; Z90.49 Acquired absence of other specified parts of digestive tract; Z98.890 Other specified postprocedural states; Z79.899 Other long term (current) drug therapy; Z91.040 Latex allergy status

== ENCOUNTER → 2021-05-25 | Outpatient (CLI) | payer OTHER | LOC: SJCVCIMAG 08:59 | PROVIDERS: ATTEND Internal Medicine | DX: R00.2 Palpitations (principal); R01.1 Cardiac murmur, unspecified; I10 Essential (primary) hypertension ==